=== PATIENT | female | born 1940 | race African-American/Black ===

== ENCOUNTER 2018-11-26 10:11 | Inpatient (IN) | payer MEDICARE, OTHER ==
[~2018-11-26] VITALS: Ht 167.6 cm; Wt 100.2 kg
[~2018-11-26 10:11] MED LIST: AMLO10TA4 PO; FOLIC ACID; NITRO-BID; POTASSIUM
[2018-11-26] MEDS ORDERED: MORPHINE SULFATE 4 MG/ML CPJ (NOT FOR IM USE) IV STA (11:02)
[2018-11-26] MEDS ORDERED: SODIUM CHLORIDE 0.9% 1,000 ML IV ONE (11:02)
[2018-11-26] MEDS ORDERED: AMLODIPINE 5MG TABLET PO ONE (11:15)
[2018-11-26 11:24] LABS: CLARITY URINE CLEAR (CLEAR); COLOR URINE YELLOW (YELLOW); KETONES URINE NEGATIVE (NEGATIVE); LEUKOCYTE ESTERASE URINE 2+ (NEGATIVE); NITRITE URINE NEGATIVE (NEGATIVE); OCCULT BLOOD URINE 1+ (NEGATIVE); PH URINE 7.5 (4.5-8.0); PROTEIN URINE NEGATIVE (NEGATIVE); SPECIFIC GRAVITY URINE 1.011 (1.005-1.030)
[2018-11-26 11:29] LABS: BASOPHILS % 0.8 % (0.0-2.0); EOSINOPHILS % 0.5 % (0.0-5.0); HEMOGLOBIN. 11.9 g/dL (12.0-16.0); MEAN CORPUSCULAR HEMOGLOBIN 32.5 pg (28.0-32.0); MEAN CORPUSCULAR VOLUME 98.2 fL (81.0-99.0); MEAN PLATELET VOLUME 6.6 fl (7.4-10.4); MONOCYTES % 11.3 % (2.0-8.0); NEUTROPHILS % 60.4 % (40.0-76.0); PLATELET 268 x1000/uL (130-400); RED BLOOD CELL COUNT 3.67 mill/uL (4.2-5.4)
[2018-11-26 11:31] LABS: CHLORIDE 103 mEq/L (98-107)
[2018-11-26 11:32] LABS: INR 1.1; PROTHROMBIN TIME 11.1 sec (9.1-11.1)
[2018-11-26] MEDS ORDERED: HYDROCODONE/ACETAMINOPHEN 5/325MG TABLET PO ONE (13:45)
[2018-11-26] MEDS ORDERED: CEFTRIAXONE 1 G PREMIX 50 ML IV ONE (16:30)
[2018-11-26] MEDS ORDERED: ONDANSETRON HCL 4MG/2ML INJ IV PRN (17:00)
[2018-11-26] MEDS ORDERED: SODIUM CHLORIDE 0.9% 1,000 ML IV SCH (17:45)
[2018-11-26] MEDS: THIAMINE HCL 100MG TABLET PO SCH (18:22)
[2018-11-26] MEDS: AMLODIPINE 10MG TABLET PO SCH (18:22)
[2018-11-26] MEDS: HYDROCODONE/ACETAMINOPHEN 5/325MG TABLET PO PRN (18:30)
[2018-11-26 18:37] VITALS: BP 192/72
[2018-11-26 20:00] VITALS: BP_SYST 125; BP_SYST 192; BP_DIAS 72; BP_DIAS 77
[2018-11-26] MEDS ORDERED: AMLODIPINE 10MG TABLET PO SCH (20:15)
[2018-11-26] MEDS: ENOXAPARIN 30MG/0.3ML SYR SUBCUT SCH (21:36)
[2018-11-26 22:49] VITALS: BP 125/77
[2018-11-26] MEDS: MORPHINE SULFATE 4 MG/ML CPJ (NOT FOR IM USE) IV PRN (23:49)
[2018-11-27] VITALS: BP 141/65
[2018-11-27 04:00] VITALS: BP 162/67
[2018-11-27] MEDS: HYDROCODONE/ACETAMINOPHEN 5/325MG TABLET PO PRN ×4 (06:34→22:29)
[2018-11-27 08:00] VITALS: BP 158/67
[2018-11-27 08:05] LABS: BASOPHILS % 1.2 % (0.0-2.0); EOSINOPHILS % 1.2 % (0.0-5.0); HEMATOCRIT. 37.6 % (36.0-48.0); HEMOGLOBIN. 12.7 g/dL (12.0-16.0); MEAN CORPUSCULAR HEMOGLOBIN 33.1 pg (28.0-32.0); MEAN CORPUSCULAR VOLUME 98.1 fL (81.0-99.0); MONOCYTES % 14.3 % (2.0-8.0); NEUTROPHILS % 54.3 % (40.0-76.0); PLATELET 286 x1000/uL (130-400); RED BLOOD CELL COUNT 3.84 mill/uL (4.2-5.4); RED CELL DISTRIBUTION WIDTH 12.8 % (11.6-14.6)
[2018-11-27 08:07] LABS: CHLORIDE 104 mEq/L (98-107)
[2018-11-27] MEDS: FOLIC ACID 1MG TABLET PO SCH (09:00)
[2018-11-27] MEDS: THIAMINE HCL 100MG TABLET PO SCH (09:00)
[2018-11-27] MEDS: AMLODIPINE 10MG TABLET PO SCH (09:00)
[2018-11-27] MEDS: ENOXAPARIN 30MG/0.3ML SYR SUBCUT SCH ×2 (09:01→20:44)
[2018-11-27 12:00] VITALS: BP 152/72
[2018-11-27 16:00] VITALS: BP 158/80
[2018-11-27] MEDS: CEFTRIAXONE 1 G PREMIX 50 ML IV SCH (18:05)
[2018-11-27] MEDS: MORPHINE SULFATE 4 MG/ML CPJ (NOT FOR IM USE) IV PRN (19:58)
[2018-11-27 20:00] VITALS: BP 150/78
[2018-11-28] VITALS (7 sets, daily range): BP systolic 131–147; BP diastolic 68–78
[2018-11-28] MEDS: HYDROCODONE/ACETAMINOPHEN 5/325MG TABLET PO PRN ×4 (03:40→20:09)
[2018-11-28] MEDS: THIAMINE HCL 100MG TABLET PO SCH (09:44)
[2018-11-28] MEDS: FOLIC ACID 1MG TABLET PO SCH (09:44)
[2018-11-28] MEDS: AMLODIPINE 10MG TABLET PO SCH (09:45)
[2018-11-28] MEDS: ENOXAPARIN 30MG/0.3ML SYR SUBCUT SCH ×2 (09:46→20:09)
[2018-11-28] MEDS: CEFTRIAXONE 1 G PREMIX 50 ML IV SCH (17:00)
[2018-11-28] MEDS ORDERED: CEFTRIAXONE 1 G PREMIX 50 ML IV SCH (18:30)
[2018-11-29 00:11] VITALS: BP 130/65
[2018-11-29] MEDS: HYDROCODONE/ACETAMINOPHEN 5/325MG TABLET PO PRN (02:11)
[2018-11-29] MEDS: MORPHINE SULFATE 4 MG/ML CPJ (NOT FOR IM USE) IV PRN ×2 (03:39→08:49)
[2018-11-29 04:00] VITALS: BP 133/73
[2018-11-29 06:16] LABS: BASOPHILS % 1.3 % (0.0-2.0); EOSINOPHILS % 1.4 % (0.0-5.0); HEMATOCRIT. 38.2 % (36.0-48.0); HEMOGLOBIN. 13.1 g/dL (12.0-16.0); LYMPHOCYTES % 36.2 % (20.0-50.0); MEAN CORPUSCULAR HEMOGLOBIN 33.3 pg (28.0-32.0); MONOCYTES % 14.7 % (2.0-8.0); NEUTROPHILS % 46.4 % (40.0-76.0); PLATELET 286 x1000/uL (130-400); RED BLOOD CELL COUNT 3.93 mill/uL (4.2-5.4); RED CELL DISTRIBUTION WIDTH 12.7 % (11.6-14.6)
[2018-11-29 07:31] LABS: CHLORIDE 103 mEq/L (98-107)
[2018-11-29 07:36] LABS: PHOSPHORUS 3.6 mg/dL (2.5-4.9)
[2018-11-29 08:01] VITALS: BP 124/56
[2018-11-29] MEDS: FOLIC ACID 1MG TABLET PO SCH (08:48)
[2018-11-29] MEDS: AMLODIPINE 10MG TABLET PO SCH (08:48)
[2018-11-29] MEDS: THIAMINE HCL 100MG TABLET PO SCH (08:48)
[2018-11-29] MEDS ORDERED: MELOXICAM 7.5MG TABLET PO SCH (09:00)
[2018-11-29 12:12] VITALS: BP 144/76
[2018-11-29] MEDS: ENOXAPARIN 30MG/0.3ML SYR SUBCUT SCH (12:21)
[2018-11-29 16:19] VITALS: BP 166/97
[2018-11-29 16:39] VITALS: BP 166/97
[2018-11-29] MEDS ORDERED: NYSTATIN POWDER 15GM TOP SCH (17:00)
== END 2018-11-29 17:20 | disposition home or self-care (01) | DRG 690 ==
LOC: ER 10:11 → ENRESERV 15:21 → 6WST 16:45 → EDBEDREQTM 16:48 → EDBEDREQSVC 16:48 → EDBEDREQ 16:48 → 6WST 23:00
PROVIDERS: ADMIT Internal Medicine Nephrology; ATTEND Internal Medicine Nephrology
DX: N39.0 Urinary tract infection, site not specified (principal); I10 Essential (primary) hypertension; E66.9 Obesity, unspecified; M19.90 Unspecified osteoarthritis, unspecified site; R26.9 Unspecified abnormalities of gait and mobility; M54.5 Low back pain; I25.10 Atherosclerotic heart disease of native coronary artery without angina pectoris; K44.9 Diaphragmatic hernia without obstruction or gangrene; Z90.49 Acquired absence of other specified parts of digestive tract; I25.2 Old myocardial infarction; Z90.710 Acquired absence of both cervix and uterus; Z68.35 Body mass index [BMI] 35.0-35.9, adult
CPT/HCPCS: 36415; 72110; 74176; 80048; 83735; 84100; 84134; 96374; 96375; 97116; 97162; 99285; J0696; J1650; J2270; J7030; J7050

== ENCOUNTER 2019-04-08 16:22 | Inpatient (IN) | payer MEDICARE, OTHER ==
[~2019-04-08] VITALS: Ht 167.6 cm; Wt 95.7 kg
[2019-04-08] MEDS ORDERED: FUROSEMIDE 40MG/4ML VIAL IV ONE (17:15)
[2019-04-08 17:39] LABS: BASOPHILS % 1.1 % (0.0-2.0); EOSINOPHILS % 1.2 % (0.0-5.0); HEMATOCRIT. 33.5 % (36.0-48.0); HEMOGLOBIN. 11.6 g/dL (12.0-16.0); LYMPHOCYTES % 23.2 % (20.0-50.0); MEAN CORPUSCULAR HEMOGLOBIN 33.6 pg (28.0-32.0); MEAN CORPUSCULAR VOLUME 97.3 fL (81.0-99.0); MEAN PLATELET VOLUME 6.6 fl (7.4-10.4); MONOCYTES % 12.4 % (2.0-8.0); NEUTROPHILS % 62.1 % (40.0-76.0); PLATELET 204 x1000/uL (130-400); RED BLOOD CELL COUNT 3.44 mill/uL (4.2-5.4); RED CELL DISTRIBUTION WIDTH 12.9 % (11.6-14.6)
[2019-04-08 17:44] LABS: CHLORIDE 105 mEq/L (98-107)
[2019-04-08 18:08] LABS: CLARITY URINE CLEAR (CLEAR); COLOR URINE YELLOW (YELLOW); KETONES URINE NEGATIVE (NEGATIVE); LEUKOCYTE ESTERASE URINE 2+ (NEGATIVE); NITRITE URINE NEGATIVE (NEGATIVE); OCCULT BLOOD URINE 1+ (NEGATIVE); PROTEIN URINE NEGATIVE (NEGATIVE); SPECIFIC GRAVITY URINE 1.007 (1.005-1.030)
[2019-04-08] MEDS ORDERED: ASPIRIN 81MG TABLET PO ONE (18:30)
[2019-04-08] MEDS ORDERED: CEFTRIAXONE 1 G PREMIX 50 ML IV ONE (18:30)
[2019-04-08 20:00] VITALS: BP 162/109
[2019-04-08 21:41] VITALS: BP 162/109
[2019-04-09] VITALS: BP 160/78
[2019-04-09 04:00] VITALS: BP 188/96
[2019-04-09] MEDS ORDERED: ACETAMINOPHEN 325MG TABLET PO PRN (04:15)
[2019-04-09] MEDS ORDERED: GUAIFENESIN 200MG/10ML SUGAR FREE UDC PO PRN (04:15)
[2019-04-09] MEDS ORDERED: CLONIDINE 0.1MG TABLET PO PRN (04:15)
[2019-04-09] MEDS ORDERED: DIPHENHYDRAMINE 50MG/ML VIAL IV PRN (04:15)
[2019-04-09] MEDS ORDERED: MAGNESIUM/ALUMINUM HYDROXIDE/SIMETHICONE 30ML UDC PO PRN (04:15)
[2019-04-09] MEDS: TRAMADOL 50MG TABLET PO PRN ×3 (05:12→20:15)
[2019-04-09] MEDS: SODIUM CHLORIDE 0.9% INJ 3ML FLUSH IVF SCH ×3 (05:13→23:08)
[2019-04-09 08:00] VITALS: BP 131/63
[2019-04-09] MEDS ORDERED: PNEUMOCOCCAL 23-VAL P-SAC VAC 0.5 ML IM ONE (08:00)
[2019-04-09] MEDS: ENOXAPARIN 30MG/0.3ML SYR SUBCUT SCH ×2 (08:25→20:29)
[2019-04-09] MEDS: POTASSIUM CHLORIDE 20MEQ TABLET SR PO SCH (08:25)
[2019-04-09] MEDS: FUROSEMIDE 40MG/4ML VIAL IVP SCH (08:25)
[2019-04-09] MEDS: AMLODIPINE 10MG TABLET PO SCH (08:25)
[2019-04-09 12:00] VITALS: BP 126/57
[2019-04-09] MEDS ORDERED: HYDRALAZINE 20MG/ML VIAL IV PRN (14:15)
[2019-04-09] MEDS: LOSARTAN POTASSIUM 100 MG TABLET PO SCH (14:36)
[2019-04-09] MEDS: ASPIRIN 81MG EC TABLET PO SCH (14:36)
[2019-04-09 16:00] VITALS: BP 166/93
[2019-04-09] MEDS: SPIRONOLACTONE 25MG TABLET PO SCH (17:17)
[2019-04-09 20:00] VITALS: BP 131/54
[2019-04-09 21:00] LABS: HEPATITIS B SURFACE ANTIGEN NEGATIVE
[2019-04-09 21:30] LABS: HEPATITIS A AB IGM NEGATIVE (NEGATIVE)
[2019-04-10] VITALS: BP 128/59
[2019-04-10 04:00] VITALS: BP 141/46
[2019-04-10] MEDS: SODIUM CHLORIDE 0.9% INJ 3ML FLUSH IVF SCH ×3 (05:37→22:00)
[2019-04-10 07:11] LABS: CHLORIDE 102 mEq/L (98-107)
[2019-04-10 07:27] LABS: HDL CHOLESTEROL 67 mg/dL (40-59); LDL CHOLESTEROL 98 mg/dL (5-100); T4 FREE 0.93 ng/dL (0.76-1.46)
[2019-04-10 07:28] LABS: PHOSPHORUS 3.4 mg/dL (2.5-4.9)
[2019-04-10 07:29] LABS: EOSINOPHILS % 3.2 % (0.0-5.0); HEMATOCRIT. 34.9 % (36.0-48.0); HEMOGLOBIN. 12.2 g/dL (12.0-16.0); LYMPHOCYTES % 36.7 % (20.0-50.0); MEAN CORPUSCULAR HEMOGLOBIN 33.6 pg (28.0-32.0); MEAN CORPUSCULAR VOLUME 96.5 fL (81.0-99.0); MEAN PLATELET VOLUME 7.1 fl (7.4-10.4); MONOCYTES % 14.4 % (2.0-8.0); NEUTROPHILS % 44.7 % (40.0-76.0); PLATELET 243 x1000/uL (130-400); RED BLOOD CELL COUNT 3.61 mill/uL (4.2-5.4); RED CELL DISTRIBUTION WIDTH 12.8 % (11.6-14.6)
[2019-04-10 08:00] VITALS: BP 134/68
[2019-04-10] MEDS: ASPIRIN 81MG EC TABLET PO SCH (08:55)
[2019-04-10] MEDS: SPIRONOLACTONE 25MG TABLET PO SCH (08:55)
[2019-04-10] MEDS: ENOXAPARIN 30MG/0.3ML SYR SUBCUT SCH ×2 (08:55→21:15)
[2019-04-10] MEDS: POTASSIUM CHLORIDE 20MEQ TABLET SR PO SCH (08:55)
[2019-04-10] MEDS: AMLODIPINE 10MG TABLET PO SCH (08:55)
[2019-04-10] MEDS: LOSARTAN POTASSIUM 100 MG TABLET PO SCH (08:55)
[2019-04-10] MEDS: TRAMADOL 50MG TABLET PO PRN ×2 (09:02→18:19)
[2019-04-10] MEDS: FUROSEMIDE 40MG/4ML VIAL IVP SCH (11:21)
[2019-04-10 12:00] VITALS: BP 142/57
[2019-04-10] MEDS ORDERED: REGADENOSON 0.4 MG/5 ML IV NR (15:00)
[2019-04-10 16:00] VITALS: BP 145/67
[2019-04-10 20:00] VITALS: BP 137/57
[2019-04-11] VITALS: BP 148/95
[2019-04-11] MEDS: TRAMADOL 50MG TABLET PO PRN ×2 (00:18→07:00)
[2019-04-11 04:00] VITALS: BP_SYST 125; BP_SYST 148; BP_DIAS 62; BP_DIAS 95
[2019-04-11] MEDS: ONDANSETRON HCL 4MG/2ML INJ IV PRN ×2 (06:10→11:14)
[2019-04-11] MEDS: SODIUM CHLORIDE 0.9% INJ 3ML FLUSH IVF SCH (06:10)
[2019-04-11 07:17] LABS: BASOPHILS % 0.5 % (0.0-2.0); EOSINOPHILS % 2.2 % (0.0-5.0); HEMATOCRIT. 36.1 % (36.0-48.0); HEMOGLOBIN. 12.3 g/dL (12.0-16.0); LYMPHOCYTES % 35.5 % (20.0-50.0); MEAN CORPUSCULAR HEMOGLOBIN 33.2 pg (28.0-32.0); MEAN CORPUSCULAR VOLUME 97.4 fL (81.0-99.0); MEAN PLATELET VOLUME 6.6 fl (7.4-10.4); MONOCYTES % 14.4 % (2.0-8.0); NEUTROPHILS % 47.4 % (40.0-76.0); PLATELET 266 x1000/uL (130-400); RED CELL DISTRIBUTION WIDTH 12.8 % (11.6-14.6)
[2019-04-11 07:20] LABS: CHLORIDE 101 mEq/L (98-107)
[2019-04-11 07:32] LABS: CREATINE KINASE 120 IU/L (26-192)
[2019-04-11 07:34] LABS: CREATINE KINASE MB FRACTION < 1.0 ng/mL (0.5-3.6)
[2019-04-11 08:00] VITALS: BP 121/68
[2019-04-11] MEDS ORDERED: ASPIRIN 81MG EC TABLET PO SCH (09:00)
[2019-04-11] MEDS ORDERED: REGADENOSON 0.4 MG/5 ML IV ONE (09:10)
[2019-04-11] MEDS: AMLODIPINE 10MG TABLET PO SCH (11:02)
[2019-04-11] MEDS: POTASSIUM CHLORIDE 20MEQ TABLET SR PO SCH (11:02)
[2019-04-11] MEDS: SPIRONOLACTONE 25MG TABLET PO SCH (11:02)
[2019-04-11] MEDS: LOSARTAN POTASSIUM 100 MG TABLET PO SCH (11:03)
[2019-04-11] MEDS: ENOXAPARIN 30MG/0.3ML SYR SUBCUT SCH (11:03)
[2019-04-11] MEDS: FUROSEMIDE 40MG/4ML VIAL IVP SCH (11:03)
[2019-04-11 12:00] VITALS: BP 142/66
== END 2019-04-11 15:50 | disposition home health service (06) | DRG 292 ==
LOC: ER 17:03 → 5WST 19:15 → ENRESERV 19:44
PROVIDERS: ADMIT Internal Medicine; ATTEND Internal Medicine
DX: I11.0 Hypertensive heart disease with heart failure (principal); R65.10 Systemic inflammatory response syndrome (SIRS) of non-infectious origin without acute organ dysfunction; I50.33 Acute on chronic diastolic (congestive) heart failure; I42.9 Cardiomyopathy, unspecified; M19.90 Unspecified osteoarthritis, unspecified site; E66.9 Obesity, unspecified; E78.5 Hyperlipidemia, unspecified; K21.9 Gastro-esophageal reflux disease without esophagitis; I49.3 Ventricular premature depolarization; Z60.2 Problems related to living alone; I25.118 Atherosclerotic heart disease of native coronary artery with other forms of angina pectoris; Z90.710 Acquired absence of both cervix and uterus; Z98.61 Coronary angioplasty status; Z82.49 Family history of ischemic heart disease and other diseases of the circulatory system; Z90.49 Acquired absence of other specified parts of digestive tract; Z79.899 Other long term (current) drug therapy; I25.2 Old myocardial infarction; Z68.34 Body mass index [BMI] 34.0-34.9, adult
CPT/HCPCS: 36415; 71045; 76700; 78452; 80061; 81003; 82550; 82553; 83735; 83880; 84100; 84439; 84443; 84484; 85379; 86705; 86709; 86803; 87340; 90732; 93005; 93017; 93306; 93970; 96365; 99285; A9500; J0696; J1650; J1940; J2405; J2785

== ENCOUNTER 2021-07-28 02:32 | Emergency (ER) | payer MEDICARE, OTHER ==
[~2021-07-28] VITALS: Ht 154.9 cm; Wt 91.0 kg
[~2021-07-28 02:32] MED LIST changes: +ASPI-1497 MT; -FOLIC ACID; +FURO40TA5 PO; +LOSA25TA26 MT; -NITRO-BID; -POTASSIUM
[2021-07-28 03:27] LABS: HEMATOCRIT 38.2 % (36.0-48.0); MEAN CORPUSCULAR HEMOGLOBIN 33.5 pg (28.0-32.0); MEAN CORPUSCULAR VOLUME 98.6 fL (81.0-99.0); PLATELET 335 x1000/uL (130-400); RED BLOOD CELL COUNT 3.87 mill/uL (4.2-5.4); RED CELL DISTRIBUTION WIDTH 12.4 % (11.6-14.6)
[2021-07-28 03:30] LABS: CHLORIDE 100 mEq/L (98-107)
[2021-07-28] MEDS ORDERED: ACET-2708 MT (05:38)
[2021-07-28] MEDS ORDERED: ACETAMINOPHEN 500MG TABLET PO ONE (05:45)
[2021-07-28 07:00] VITALS: BP 131/68
[2021-07-28 07:26] LABS: CLARITY URINE CLOUDY (CLEAR); COLOR URINE YELLOW (YELLOW); KETONES URINE NEGATIVE (NEGATIVE); LEUKOCYTE ESTERASE URINE 2+ (NEGATIVE); NITRITE URINE NEGATIVE (NEGATIVE); OCCULT BLOOD URINE TRACE (NEGATIVE); PH URINE 5.5 (4.5-8.0); PROTEIN URINE NEGATIVE (NEGATIVE); SPECIFIC GRAVITY URINE 1.012 (1.005-1.030); UROBILINOGEN URINE 0.2 E.U./dL (0.2-1.0)
== END 2021-07-28 07:42 | disposition home or self-care (01) ==
LOC: ER 02:59
DX: M54.9 Dorsalgia, unspecified (principal); M54.2 Cervicalgia; I10 Essential (primary) hypertension; Z98.890 Other specified postprocedural states; Z79.899 Other long term (current) drug therapy
CPT/HCPCS: 36415; 72128; 72131; 80053; 81003; 85027; 87077; 87186; 99284

== ENCOUNTER 2021-08-16 16:21 | Emergency (ER) | payer MEDICARE, OTHER ==
[~2021-08-16] VITALS: Ht 160 cm; Wt 100.0 kg
[~2021-08-16 16:21] MED LIST changes: +ACET-2708 MT
[2021-08-16] MEDS ORDERED: ACETAMINOPHEN 325MG TABLET PO ONE (16:45)
[2021-08-16 18:31] VITALS: BP 148/86
== END 2021-08-16 18:32 | disposition home or self-care (01) ==
LOC: ER 16:21
DX: S00.03XA Contusion of scalp, initial encounter (principal); I10 Essential (primary) hypertension; Z90.49 Acquired absence of other specified parts of digestive tract; Z98.51 Tubal ligation status; Z98.890 Other specified postprocedural states; Z79.82 Long term (current) use of aspirin; W18.30XA Fall on same level, unspecified, initial encounter; Y93.89 Activity, other specified; Y92.89 Other specified places as the place of occurrence of the external cause; Y99.8 Other external cause status
CPT/HCPCS: 99283

== ENCOUNTER 2022-06-05 12:50 | Inpatient (IN) | payer MEDICARE, OTHER ==
[~2022-06-05] VITALS: Ht 165.1 cm; Wt 99.8 kg
[~2022-06-05 12:50] MED LIST changes: +AZIT500T8 MT; +PANT40TA51 MT
[2022-06-05] MEDS ORDERED: ONDANSETRON HCL 4MG/2ML INJ IV ONE (13:30)
[2022-06-05] MEDS ORDERED: FAMOTIDINE 20MG/2ML VIAL IV ONE (13:30)
[2022-06-05] MEDS ORDERED: SODIUM CHLORIDE 0.9% 1,000 ML IV ONE (13:30)
[2022-06-05 13:59] LABS: HEMATOCRIT. 34.4 % (36.0-48.0); HEMOGLOBIN. 11.6 g/dL (12.0-16.0); MEAN CORPUSCULAR HEMOGLOBIN 32.7 pg (28.0-32.0); MEAN CORPUSCULAR VOLUME 97.4 fL (81.0-99.0); MEAN PLATELET VOLUME 6.5 fl (7.4-10.4); PLATELET 236 x1000/uL (130-400); RED BLOOD CELL COUNT 3.54 mill/uL (4.2-5.4); RED CELL DISTRIBUTION WIDTH 13.4 % (11.6-14.6)
[2022-06-05 14:05] LABS: CHLORIDE 98 mEq/L (98-107)
[2022-06-05 14:21] LABS: PLATELET ESTIMATE NORMAL
[2022-06-05] MEDS ORDERED: IOHEXOL-300 100 ML BOTTLE ONE (15:44)
[2022-06-05] MEDS ORDERED: ONDANSETRON HCL 4MG/2ML INJ IV PRN (19:15)
[2022-06-05] MEDS ORDERED: DIPHENHYDRAMINE 50MG/ML VIAL IV PRN (19:15)
[2022-06-05] MEDS ORDERED: CLONIDINE 0.1MG TABLET PO PRN (19:15)
[2022-06-05] MEDS: SODIUM CHLORIDE 0.9% 1,000 ML IV SCH (21:13)
[2022-06-05 23:30] VITALS: BP 150/79
[2022-06-06] MEDS: ACETAMINOPHEN 325MG TABLET PO PRN ×3 (03:59→23:01)
[2022-06-06 04:08] VITALS: BP 156/73
[2022-06-06 07:46] LABS: BASOPHILS % 0.7 % (0.0-2.0); EOSINOPHILS % 1.2 % (0.0-5.0); HEMATOCRIT. 32.9 % (36.0-48.0); HEMOGLOBIN. 11.3 g/dL (12.0-16.0); LYMPHOCYTES % 18.9 % (20.0-50.0); MEAN CORPUSCULAR HEMOGLOBIN 33.5 pg (28.0-32.0); MEAN CORPUSCULAR VOLUME 97.4 fL (81.0-99.0); MEAN PLATELET VOLUME 6.9 fl (7.4-10.4); MONOCYTES % 12.9 % (2.0-8.0); NEUTROPHILS % 66.3 % (40.0-76.0); PLATELET 233 x1000/uL (130-400); RED BLOOD CELL COUNT 3.38 mill/uL (4.2-5.4); RED CELL DISTRIBUTION WIDTH 13.4 % (11.6-14.6)
[2022-06-06 08:00] VITALS: BP 128/74
[2022-06-06] MEDS: SODIUM CHLORIDE 0.9% 1,000 ML IV SCH ×2 (08:00→20:30)
[2022-06-06 08:12] LABS: CHLORIDE 104 mEq/L (98-107)
[2022-06-06 12:00] VITALS: BP 113/69
[2022-06-06] MEDS: AMLODIPINE 10MG TABLET PO SCH (12:45)
[2022-06-06 16:00] VITALS: BP 136/69
[2022-06-06] MEDS: LOSARTAN POTASSIUM 25 MG TABLET PO SCH (16:32)
[2022-06-06] MEDS: FUROSEMIDE 40MG TABLET PO SCH (16:32)
[2022-06-06 20:00] VITALS: BP 160/63
[2022-06-07] VITALS: BP 140/75
[2022-06-07 04:00] VITALS: BP 166/77
[2022-06-07 08:00] VITALS: BP 148/76
[2022-06-07] MEDS: LOSARTAN POTASSIUM 25 MG TABLET PO SCH ×2 (08:55→18:23)
[2022-06-07] MEDS: PANTOPRAZOLE 40MG DR TABLET PO SCH (08:56)
[2022-06-07] MEDS: FUROSEMIDE 40MG TABLET PO SCH ×2 (08:58→17:00)
[2022-06-07] MEDS: AMLODIPINE 10MG TABLET PO SCH (08:58)
[2022-06-07] MEDS ORDERED: DEXTROSE 50% WATER 50ML SYRINGE IV PRN (09:30)
[2022-06-07] MEDS ORDERED: NALOXONE HCL 0.4MG/ML VIAL IV PRN (09:45)
[2022-06-07] MEDS: HYDROCODONE/ACETAMINOPHEN 5/325MG TABLET PO PRN ×2 (10:17→19:45)
[2022-06-07 12:00] VITALS: BP 129/76
[2022-06-07] MEDS: BLOOD SUGAR DIAGNOSTIC STRIP TEST SCH ×3 (12:20→21:27)
[2022-06-07] MEDS: INSULIN LISPRO 100 UNITS/ML SUBCUT SCH ×3 (12:50→21:00)
[2022-06-07 16:00] VITALS: BP 92/71
[2022-06-07 20:00] VITALS: BP 111/51
[2022-06-07] MEDS: SODIUM CHLORIDE 0.9% 1,000 ML IV SCH (21:26)
[2022-06-08] VITALS: BP 131/78
[2022-06-08 04:00] VITALS: BP 144/81
[2022-06-08] MEDS: BLOOD SUGAR DIAGNOSTIC STRIP TEST SCH ×4 (06:10→21:01)
[2022-06-08] MEDS: ACETAMINOPHEN 325MG TABLET PO PRN (06:36)
[2022-06-08] MEDS: HYDROCODONE/ACETAMINOPHEN 5/325MG TABLET PO PRN ×2 (06:41→19:45)
[2022-06-08] MEDS: INSULIN LISPRO 100 UNITS/ML SUBCUT SCH ×4 (07:50→21:00)
[2022-06-08 08:00] VITALS: BP 130/69
[2022-06-08 08:22] LABS: HEMATOCRIT. 35.7 % (36.0-48.0); HEMOGLOBIN. 12.4 g/dL (12.0-16.0); MEAN CORPUSCULAR HEMOGLOBIN 33.2 pg (28.0-32.0); MEAN CORPUSCULAR VOLUME 95.8 fL (81.0-99.0); PLATELET 283 x1000/uL (130-400); RED BLOOD CELL COUNT 3.73 mill/uL (4.2-5.4); RED CELL DISTRIBUTION WIDTH 13.7 % (11.6-14.6)
[2022-06-08 08:40] LABS: CHLORIDE 96 mEq/L (98-107)
[2022-06-08] MEDS: SODIUM CHLORIDE 0.9% 1,000 ML IV SCH ×6 (09:08→09:50)
[2022-06-08] MEDS: PANTOPRAZOLE 40MG DR TABLET PO SCH (09:45)
[2022-06-08] MEDS: LOSARTAN POTASSIUM 25 MG TABLET PO SCH ×2 (09:45→18:16)
[2022-06-08] MEDS: FUROSEMIDE 40MG TABLET PO SCH ×2 (09:46→18:17)
[2022-06-08] MEDS: AMLODIPINE 10MG TABLET PO SCH (09:46)
[2022-06-08] MEDS ORDERED: BISA-81 PO (11:22)
[2022-06-08] MEDS ORDERED: POLY17PO3 MT (11:22)
[2022-06-08 11:54] VITALS: BP 118/47
[2022-06-08] MEDS ORDERED: POTASSIUM CHLORIDE 20MEQ TABLET SR PO NR ×2 (12:00→18:15)
[2022-06-08 14:58] LABS: PLATELET ESTIMATE NORMAL
[2022-06-08 16:00] VITALS: BP 143/71
[2022-06-08 20:00] VITALS: BP 119/56
[2022-06-09] VITALS: BP 124/58
[2022-06-09] MEDS: BLOOD SUGAR DIAGNOSTIC STRIP TEST SCH ×2 (06:07→13:03)
[2022-06-09] MEDS: INSULIN LISPRO 100 UNITS/ML SUBCUT SCH ×2 (07:50→12:50)
[2022-06-09 08:00] VITALS: BP 140/76
[2022-06-09] MEDS: LOSARTAN POTASSIUM 25 MG TABLET PO SCH (08:56)
[2022-06-09] MEDS: PANTOPRAZOLE 40MG DR TABLET PO SCH (08:56)
[2022-06-09] MEDS: AMLODIPINE 10MG TABLET PO SCH (08:57)
[2022-06-09] MEDS: FUROSEMIDE 40MG TABLET PO SCH (08:58)
[2022-06-09] MEDS: HYDROCODONE/ACETAMINOPHEN 5/325MG TABLET PO PRN (08:58)
[2022-06-09 12:03] VITALS: BP 109/65
[2022-06-09 14:06] VITALS: BP 109/65
[2022-06-10] MEDS ORDERED: FAMOTIDINE 20MG TABLET PO SCH (09:00)
== END 2022-06-09 14:45 | disposition home health service (06) | DRG 389 ==
LOC: ER 12:50 → MICUSO 18:16 → EDBEDREQ 18:21 → EDBEDREQTM 18:21 → ENRESERV 22:00 → 6EST 23:58
PROVIDERS: ADMIT Internal Medicine; ATTEND Internal Medicine
DX: K56.600 Partial intestinal obstruction, unspecified as to cause (principal); I50.42 Chronic combined systolic (congestive) and diastolic (congestive) heart failure; J98.11 Atelectasis; K57.90 Diverticulosis of intestine, part unspecified, without perforation or abscess without bleeding; I11.0 Hypertensive heart disease with heart failure; I25.10 Atherosclerotic heart disease of native coronary artery without angina pectoris; E78.5 Hyperlipidemia, unspecified; Z90.49 Acquired absence of other specified parts of digestive tract; Z90.710 Acquired absence of both cervix and uterus; G89.29 Other chronic pain; I73.9 Peripheral vascular disease, unspecified
CPT/HCPCS: 36415; 71045; 74018; 74177; 80048; 80053; 82962; 83036; 83735; 83880; 84484; 85025; 93005; 93970; 99285; J1200; J2405; J3490; J7030; Q9967

== ENCOUNTER 2022-09-09 16:46 | Emergency (ER) | payer MEDICARE, OTHER ==
[~2022-09-09] VITALS: Ht 157.5 cm; Wt 82.0 kg
[~2022-09-09 16:46] MED LIST changes: -AZIT500T8 MT; +BISA-81 PO; +POLY17PO3 MT
[2022-09-09 17:39] LABS: BASOPHILS % 0.8 % (0.0-2.0); EOSINOPHILS % 0.1 % (0.0-5.0); HEMATOCRIT. 34.6 % (36.0-48.0); HEMOGLOBIN. 11.6 g/dL (12.0-16.0); LYMPHOCYTES % 15.3 % (20.0-50.0); MEAN CORPUSCULAR HEMOGLOBIN 32.5 pg (28.0-32.0); MEAN CORPUSCULAR VOLUME 96.5 fL (81.0-99.0); MEAN PLATELET VOLUME 6.6 fl (7.4-10.4); MONOCYTES % 5.7 % (2.0-8.0); NEUTROPHILS % 78.1 % (40.0-76.0); PLATELET 218 x1000/uL (130-400); RED BLOOD CELL COUNT 3.58 mill/uL (4.2-5.4); RED CELL DISTRIBUTION WIDTH 12.4 % (11.6-14.6)
[2022-09-09 17:44] LABS: CHLORIDE 90 mEq/L (98-107)
[2022-09-09 17:47] LABS: PROTHROMBIN TIME 11.2 sec (9.6-11.0)
[2022-09-09] MEDS: LACTULOSE 20G/30ML UDC PO ONE (19:14)
[2022-09-09] MEDS: LACTULOSE 20G/30ML UDC PO NR (19:20)
[2022-09-09] MEDS: MORPHINE SULFATE 10 MG/ML CPJ IM ONE (20:45)
[2022-09-09] MEDS ORDERED: BISA-81 PO (21:58)
[2022-09-09] MEDS ORDERED: POLY17PO3 MT (21:58)
[2022-09-09 22:39] VITALS: BP 172/79
[2022-09-09] MEDS: LORAZEPAM 1MG TABLET PO ONE (22:39)
[2022-09-09] MEDS: KETOROLAC 30MG/ML VIAL IM ONE (22:39)
== END 2022-09-09 22:59 | disposition home or self-care (01) ==
LOC: ER 16:56
DX: K56.41 Fecal impaction (principal); E87.1 Hypo-osmolality and hyponatremia; Z68.31 Body mass index [BMI] 31.0-31.9, adult
CPT/HCPCS: 36415; 74176; 80053; 83690; 85025; 85610; 96372; 99285; J1885; J2270

== ENCOUNTER 2023-10-19 21:59 | Inpatient (IN) | payer MEDICARE, OTHER ==
[~2023-10-19] VITALS: Ht 172.7 cm; Wt 84.4 kg
[2023-10-19 22:04] VITALS: O2SAT 100
[2023-10-19] MEDS ORDERED: MORPHINE SULFATE 4 MG/ML CPJ (NOT FOR IM USE) IV ONE (23:00)
[2023-10-20] VITALS (12 sets, daily range): BP systolic 120–176; BP diastolic 65–97; PULSE 82–106; RESP 10–23; TEMP 96.7–97.8
[2023-10-20 02:13] LABS: BASOPHILS % 0.8 % (0.0-2.0); EOSINOPHILS % 0.3 % (0.0-5.0); HEMOGLOBIN. 12.2 g/dL (12.0-16.0); LYMPHOCYTES % 15.9 % (20.0-50.0); MEAN CORPUSCULAR HEMOGLOBIN 33.1 pg (28.0-32.0); MEAN CORPUSCULAR HGB CONC 33.8 g/dL (31.0-37.0); MEAN CORPUSCULAR VOLUME 97.9 fL (81.0-99.0); MEAN PLATELET VOLUME 7.4 fl (7.4-10.4); MONOCYTES % 8.1 % (2.0-8.0); NEUTROPHILS % 74.9 % (40.0-76.0); PLATELET 226 x1000/uL (130-400); RED BLOOD CELL COUNT 3.68 mill/uL (4.2-5.4); WHITE BLOOD COUNT 3.7 x1000/uL (4.5-11.0)
[2023-10-20] MEDS: ONDANSETRON HCL 4MG/2ML INJ IV ONE (02:16)
[2023-10-20] MEDS: MORPHINE SULFATE 4 MG/ML CPJ (NOT FOR IM USE) IV NR (02:16)
[2023-10-20] MEDS: ONDANSETRON HCL 4MG/2ML INJ IV NR (02:17)
[2023-10-20 02:25] LABS: ALANINE AMINOTRANSFERASE 12 IU/L (10-49); ALBUMIN 4.8 g/dL (3.2-4.8); ASPARTATE AMINOTRANSFERASE 32 IU/L (<34); BILIRUBIN TOTAL 0.9 mg/dL (0.1-1.0); CALCIUM 9.7 mg/dL (8.7-10.4); CARBON DIOXIDE 24 mEq/L (21-32); CHLORIDE 105 mEq/L (98-107); CREATININE 0.8 mg/dL (0.6-1.0); GLUCOSE 111 mg/dL (70-105); POTASSIUM 4.5 mEq/L (3.5-5.1); PROTEIN TOTAL 8.7 g/dL (6.0-8.3); SODIUM 135 mEq/L (136-145); TROPONIN I HIGH SENSITIVITY 24 ng/L (3.0-34); UREA NITROGEN BLOOD 21 mg/dL (9-23)
[2023-10-20 02:39] LABS: PROTHROMBIN TIME 11.2 sec (9.6-11.0)
[2023-10-20 02:58] LABS: DIFFERENTIAL COMMENT 1
[2023-10-20] MEDS ORDERED: DILTIAZEM HCL 5MG/ML 5ML VIAL IV NR (06:00)
[2023-10-20] MEDS ORDERED: MAGNESIUM/ALUMINUM HYDROXIDE/SIMETHICONE 30ML UDC PO PRN (06:00)
[2023-10-20] MEDS ORDERED: IPRATROPIUM/ALBUTEROL 0.5-3(2.5)MG/3ML NEB HHN PRN (06:00)
[2023-10-20] MEDS ORDERED: ONDANSETRON HCL 4MG/2ML INJ IV PRN (06:00)
[2023-10-20] MEDS ORDERED: SODIUM CHLORIDE 0.9% 1,000 ML IV SCH (06:00)
[2023-10-20] MEDS ORDERED: ACETAMINOPHEN 325MG TABLET PO PRN (06:00)
[2023-10-20] MEDS ORDERED: ACETAMINOPHEN 500MG TABLET PO PRN (06:15)
[2023-10-20] MEDS ORDERED: NITROGLYCERIN 0.4MG TABLET SL SL PRN (06:15)
[2023-10-20 07:45] LABS: CALCIUM 9.6 mg/dL (8.7-10.4); CARBON DIOXIDE 26 mEq/L (21-32); CHLORIDE 103 mEq/L (98-107); CREATINE KINASE MB FRACTION 3.3 ng/mL (0.5-3.6); CREATININE 0.7 mg/dL (0.6-1.0); GLUCOSE 109 mg/dL (70-105); POTASSIUM 4.2 mEq/L (3.5-5.1); SODIUM 136 mEq/L (136-145); UREA NITROGEN BLOOD 17 mg/dL (9-23)
[2023-10-20] MEDS: NITROGLYCERIN SPRAY/4.9GM CAN TL ONE (08:06)
[2023-10-20] MEDS: DEXT 5%/0.9% NACL 500 ML IV ONE (08:06)
[2023-10-20] MEDS: PANTOPRAZOLE SODIUM 40 MG/VIAL IV SCH (08:06)
[2023-10-20] MEDS ORDERED: AMLODIPINE 10MG TABLET PO SCH (09:00)
[2023-10-20] MEDS ORDERED: IOHEXOL-300 100 ML BOTTLE ONE (09:11)
[2023-10-20] MEDS: ASPIRIN 81MG EC TABLET PO SCH (09:24)
[2023-10-20] MEDS: AMLODIPINE 5MG TABLET PO SCH (09:24)
[2023-10-20] MEDS: FUROSEMIDE 40MG TABLET PO SCH (09:24)
[2023-10-20] MEDS: BISACODYL 5MG TABLET PO SCH (09:38)
[2023-10-20] MEDS: LOSARTAN 25 MG TABLET PO SCH (09:38)
[2023-10-20] MEDS: MORPHINE SULFATE 4 MG/ML CPJ (NOT FOR IM USE) IV SCH (12:22)
[2023-10-20] MEDS: LABETALOL 5MG/ML SYR 20 MG/4 ML SYRINGE IV NR (13:06)
[2023-10-20] MEDS: POLYETHYLENE GLYCOL 3350 (17GM) 1 DOSE PACK PO SCH (14:00)
[2023-10-20] MEDS: DEXT 5%/0.9% NACL 1,000 ML IV SCH (14:21)
[2023-10-20] MEDS: SODIUM PHOS,M-BASIC-D-BASIC 15 MM in DEXT 5% WATER 245 ML IV NR (14:21)
[2023-10-20] MEDS: HYDRALAZINE 20MG/ML VIAL IV PRN (16:13)
[2023-10-20] MEDS ORDERED: LOSA100T33 MT (16:28)
[2023-10-20] MEDS ORDERED: ONDA4TAB11 PO (16:29)
[2023-10-20] MEDS ORDERED: CARI350T28 MT (16:30)
[2023-10-20] MEDS ORDERED: FOLI-43 MT (16:34)
[2023-10-20] MEDS ORDERED: SPIR25TA6 MT (16:34)
[2023-10-20] MEDS ORDERED: POTA-205 MT (16:34)
[2023-10-20] MEDS ORDERED: DOCU-138 MT (16:34)
[2023-10-20] MEDS ORDERED: MAGN200T5 MT (16:34)
[2023-10-20 16:43] LABS: CREATINE KINASE MB FRACTION 4.1 ng/mL (0.5-3.6)
[2023-10-20] MEDS: MORPHINE SULFATE 2 MG/ML CPJ (NOT FOR IM USE) IV PRN (17:25)
[2023-10-20] MEDS: HYDRALAZINE 20MG/ML VIAL IV SCH (17:26)
[2023-10-20] MEDS ORDERED: NALOXONE HCL 0.4MG/ML VIAL IV PRN (17:30)
[2023-10-21] VITALS (14 sets, daily range): BP systolic 118–172; BP diastolic 57–98; PULSE 73–124; RESP 17–22; TEMP 97.5–98
[2023-10-21 07:11] LABS: BASOPHILS % 0.8 % (0.0-2.0); EOSINOPHILS % 0.4 % (0.0-5.0); HEMATOCRIT. 35.7 % (36.0-48.0); HEMOGLOBIN. 11.9 g/dL (12.0-16.0); MEAN CORPUSCULAR HEMOGLOBIN 32.5 pg (28.0-32.0); MEAN CORPUSCULAR HGB CONC 33.4 g/dL (31.0-37.0); MEAN CORPUSCULAR VOLUME 97.5 fL (81.0-99.0); NEUTROPHILS % 74.8 % (40.0-76.0); PLATELET 224 x1000/uL (130-400); RED BLOOD CELL COUNT 3.67 mill/uL (4.2-5.4); WHITE BLOOD COUNT 4.9 x1000/uL (4.5-11.0)
[2023-10-21 07:30] LABS: CALCIUM 8.8 mg/dL (8.7-10.4); CARBON DIOXIDE 26 mEq/L (21-32); CHLORIDE 104 mEq/L (98-107); CHOLESTEROL 162 mg/dL (<200); CREATININE 0.5 mg/dL (0.6-1.0); GLUCOSE 116 mg/dL (70-105); HDL CHOLESTEROL 57 mg/dL (>65); LDL CHOLESTEROL 93 mg/dL (5-100); POTASSIUM 3.5 mEq/L (3.5-5.1); SODIUM 134 mEq/L (136-145); T4 FREE 1.37 ng/dL (0.89-1.76); THYROID STIMULATING HORMONE 0.49 uIU/mL (0.55-4.78); TRIGLYCERIDE 43 mg/dL (0-150); UREA NITROGEN BLOOD 13 mg/dL (9-23)
[2023-10-21] MEDS: AMLODIPINE 10MG TABLET PO SCH (09:00)
[2023-10-21] MEDS ORDERED: LABETALOL 5MG/ML SYR 20 MG/4 ML SYRINGE IV SCH (09:00)
[2023-10-21] MEDS ORDERED: FUROSEMIDE 40MG/4ML VIAL IVP SCH ×2 (09:00)
[2023-10-21 09:52] LABS: INR 1.1; PROTHROMBIN TIME 11.9 sec (9.6-11.0)
[2023-10-21] MEDS: FUROSEMIDE 40MG/4ML VIAL IVP SCH (10:01)
[2023-10-21] MEDS: HYDRALAZINE 20MG/ML VIAL IV PRN (11:13)
[2023-10-21] MEDS ORDERED: LABETALOL HCL 5MG/ML VIAL 20ML IV ONE (15:51)
[2023-10-21] MEDS ORDERED: PROPOFOL 200MG/20ML VIAL IV ONE ×2 (16:37→16:51)
[2023-10-21] MEDS ORDERED: ONDANSETRON HCL 4MG/2ML INJ ONE (16:45)
[2023-10-21] MEDS ORDERED: DEXAMETHASONE 4MG/ML 1ML VIAL ONE (16:45)
[2023-10-21] MEDS: LABETALOL 5MG/ML SYR 20 MG/4 ML SYRINGE IV SCH (17:00)
[2023-10-22] VITALS (10 sets, daily range): BP systolic 113–141; BP diastolic 60–93; PULSE 64–97; RESP 15–22; TEMP 97.3–98.3
[2023-10-22 06:41] LABS: HEMATOCRIT 32.9 % (36.0-48.0); HEMOGLOBIN 11.1 g/dL (12.0-16.0); MEAN CORPUSCULAR HEMOGLOBIN 33.1 pg (28.0-32.0); MEAN CORPUSCULAR HGB CONC 33.7 g/dL (31.0-37.0); MEAN CORPUSCULAR VOLUME 98.2 fL (81.0-99.0); PLATELET 199 x1000/uL (130-400); RED BLOOD CELL COUNT 3.35 mill/uL (4.2-5.4); RED CELL DISTRIBUTION WIDTH 13.1 % (11.6-14.6); WHITE BLOOD COUNT 13.1 x1000/uL (4.5-11.0)
[2023-10-22 06:58] LABS: CALCIUM 8.7 mg/dL (8.7-10.4); CARBON DIOXIDE 25 mEq/L (21-32); CHLORIDE 105 mEq/L (98-107); CREATININE 0.6 mg/dL (0.6-1.0); GLUCOSE 103 mg/dL (70-105); POTASSIUM 3.4 mEq/L (3.5-5.1); SODIUM 138 mEq/L (136-145); UREA NITROGEN BLOOD 19 mg/dL (9-23)
[2023-10-22] MEDS: KCL 20MEQ/100ML PREMIX 100 ML IV NR (09:46)
[2023-10-22] MEDS: FENTANYL CITRATE/PF 50MCG/ML 2ML VIAL IV NR (13:14)
[2023-10-22] MEDS: DEXT 5%/0.9% NACL 1,000 ML IV SCH (18:00)
[2023-10-23] VITALS (11 sets, daily range): BP systolic 129–170; BP diastolic 56–102; PULSE 65–85; RESP 12–21; TEMP 97.2–98
[2023-10-23] MEDS: KETOROLAC 15MG/ML VIAL IV NR (12:29)
[2023-10-24] VITALS (9 sets, daily range): BP systolic 147–179; BP diastolic 52–99; PULSE 55–77; RESP 16–24; TEMP 97.6–98.3
[2023-10-24 07:17] LABS: HEMOGLOBIN 11.4 g/dL (12.0-16.0); MEAN CORPUSCULAR HEMOGLOBIN 32.7 pg (28.0-32.0); MEAN CORPUSCULAR HGB CONC 33.4 g/dL (31.0-37.0); PLATELET 176 x1000/uL (130-400); RED BLOOD CELL COUNT 3.47 mill/uL (4.2-5.4); RED CELL DISTRIBUTION WIDTH 12.9 % (11.6-14.6); WHITE BLOOD COUNT 6.1 x1000/uL (4.5-11.0)
[2023-10-24 07:31] LABS: CALCIUM 8.9 mg/dL (8.7-10.4); CARBON DIOXIDE 26 mEq/L (21-32); CHLORIDE 106 mEq/L (98-107); CREATININE 0.6 mg/dL (0.6-1.0); GLUCOSE 92 mg/dL (70-105); SODIUM 140 mEq/L (136-145); UREA NITROGEN BLOOD 15 mg/dL (9-23)
[2023-10-24] MEDS ORDERED: HYDRALAZINE 20MG/ML VIAL IV PRN (08:30)
[2023-10-24] MEDS: NITROGLYCERIN 0.4MG TABLET SL SL PRN (15:19)
== END 2023-10-24 17:30 | disposition left against medical advice (07) | DRG 392 ==
LOC: ER 21:59 → 5EST 10-20 06:32 → EDBEDREQSVC 10-20 08:03
PROVIDERS: ADMIT Preventive Medicine Clinical Informatics; ATTEND Preventive Medicine Clinical Informatics
PROC: 0DB78ZX Excision of Stomach, Pylorus, Via Natural or Artificial Opening Endoscopic, Diagnostic (ICD-10-PCS; principal; 2023-10-21)
DX: K22.0 Achalasia of cardia (principal); I50.22 Chronic systolic (congestive) heart failure; K29.70 Gastritis, unspecified, without bleeding; T18.128A Food in esophagus causing other injury, initial encounter; I11.0 Hypertensive heart disease with heart failure; G89.29 Other chronic pain; Z53.29 Procedure and treatment not carried out because of patient's decision for other reasons; E83.39 Other disorders of phosphorus metabolism; I25.10 Atherosclerotic heart disease of native coronary artery without angina pectoris; K44.9 Diaphragmatic hernia without obstruction or gangrene; K59.09 Other constipation; I73.9 Peripheral vascular disease, unspecified; K21.9 Gastro-esophageal reflux disease without esophagitis; R13.10 Dysphagia, unspecified; E87.6 Hypokalemia; K22.89 Other specified disease of esophagus; E04.2 Nontoxic multinodular goiter; E78.5 Hyperlipidemia, unspecified; Z79.899 Other long term (current) drug therapy; Z79.82 Long term (current) use of aspirin; W44.F3XA Food entering into or through a natural orifice, initial encounter; Y93.89 Activity, other specified; Y92.89 Other specified places as the place of occurrence of the external cause; Y99.8 Other external cause status
CPT/HCPCS: 36415; 70491; 71045; 71260; 80048; 80053; 80061; 82040; 82550; 82553; 82962; 83036; 83735; 83880; 84100; 84439; 84443; 84484; 85025; 85027; 88305; 88312; 88313; 92610; 93005; 93970; 99285; C9113; J0360; J1100; J1885; J1940; J2270; J2405; J2704; J3010; J3480; J3490; J7042; J7060; Q9967

== ENCOUNTER 2024-11-01 12:07 | Emergency (ER) | payer MEDICARE, OTHER ==
[~2024-11-01] VITALS: Ht 167.6 cm; Wt 70.0 kg
[~2024-11-01 12:07] MED LIST changes: -AMLO10TA4 PO; +AMLO10TA80; +APIX2.5T MT; -ASPI-1497 MT; +ATOR10TA69 MT; +BACL-141; +CARI350T28 MT; +DILT240C96; +DILT60TA3 MT; +DOCU-138 MT; +FAMO20TA8; +FOLI-43 MT; +FURO20TA4; +LOSA100T33 MT; -LOSA25TA26 MT; +MAGN200T5 MT; +MECL-299; +METO25TA6 PO; +ONDA-239 PO; +POTA-204; +POTA-205 MT; +SPIR25TA6 MT
[2024-11-01 12:24] VITALS: O2SAT 98
[2024-11-01 12:53] LABS: BASOPHILS % 0.9 % (0.0-2.0); EOSINOPHILS % 0.4 % (0.0-5.0); HEMATOCRIT. 37.2 % (36.0-48.0); HEMOGLOBIN. 12.4 g/dL (12.0-16.0); LYMPHOCYTES % 19.8 % (20.0-50.0); MEAN CORPUSCULAR HEMOGLOBIN 33.3 pg (28.0-32.0); MEAN CORPUSCULAR HGB CONC 33.4 g/dL (31.0-37.0); MEAN CORPUSCULAR VOLUME 99.8 fL (81.0-99.0); MEAN PLATELET VOLUME 6.9 fl (7.4-10.4); MONOCYTES % 10.6 % (2.0-8.0); NEUTROPHILS % 68.3 % (40.0-76.0); PLATELET 231 x1000/uL (130-400); RED BLOOD CELL COUNT 3.73 mill/uL (4.2-5.4); RED CELL DISTRIBUTION WIDTH 15.4 % (11.6-14.6); WHITE BLOOD COUNT 4.2 x1000/uL (4.5-11.0)
[2024-11-01 12:58] LABS: CHLORIDE 102 mEq/L (98-107); SODIUM 137 mEq/L (136-145)
[2024-11-01 12:59] LABS: CARBON DIOXIDE 24 mEq/L (21-32)
[2024-11-01 13:00] LABS: CALCIUM 9.8 mg/dL (8.7-10.4)
[2024-11-01 13:04] LABS: CREATININE 0.8 mg/dL (0.6-1.0); GLUCOSE 127 mg/dL (70-105); UREA NITROGEN BLOOD 13 mg/dL (9-23)
[2024-11-01 13:15] LABS: TROPONIN I HIGH SENSITIVITY 6 ng/L (3.0-34)
[2024-11-01 13:16] LABS: ALANINE AMINOTRANSFERASE 12 IU/L (10-49); ALBUMIN 4.3 g/dL (3.2-4.8); ASPARTATE AMINOTRANSFERASE 33 IU/L (<34); BILIRUBIN DIRECT 0.5 mg/dL (<=3.0); BILIRUBIN TOTAL 1.7 mg/dL (0.1-1.0); PROTEIN TOTAL 8.1 g/dL (6.0-8.3)
[2024-11-01 13:35] VITALS: BP 123/69; PULSE 81; RESP 16; TEMP 36.8; O2SAT 98
[2024-11-01 14:30] LABS: CLARITY URINE CLEAR (CLEAR); COLOR URINE YELLOW (YELLOW); GLUCOSE URINE NEGATIVE (NEGATIVE); KETONES URINE NEGATIVE (NEGATIVE); LEUKOCYTE ESTERASE URINE NEGATIVE (NEGATIVE); NITRITE URINE NEGATIVE (NEGATIVE); OCCULT BLOOD URINE 1+ (NEGATIVE); PROTEIN URINE NEGATIVE (NEGATIVE); SPECIFIC GRAVITY URINE 1.009 (1.005-1.030)
[2024-11-01] MEDS: SODIUM CHLORIDE 0.9% 1,000 ML IV ONE (14:39)
[2024-11-01] MEDS ORDERED: ONDANSETRON HCL 4MG/2ML INJ IV PRN (14:45)
[2024-11-01] MEDS ORDERED: ACETAMINOPHEN 325MG TABLET PO PRN (14:45)
[2024-11-01 15:00] LABS: MUCUS URINE 1+ /lpf (< = 2+); SQUAMOUS EPITHELIAL CELL URINE 1+ /lpf (RARE/1+)
[2024-11-01] MEDS ORDERED: DILTIAZEM HCL 90MG TABLET PO SCH (15:00)
[2024-11-01 15:02] LABS: WBC URINE 0-2 /hpf (0-2)
[2024-11-01 15:03] LABS: BACTERIA URINE NONE SEEN
[2024-11-01] MEDS ORDERED: METO25TA6 MT (15:09)
[2024-11-01] MEDS ORDERED: APIXABAN 2.5 MG TABLET PO SCH (21:00)
[2024-11-01] MEDS ORDERED: FAMOTIDINE 20MG TABLET PO SCH (21:00)
[2024-11-02] MEDS ORDERED: PANTOPRAZOLE 40MG DR TABLET PO SCH (07:50)
[2024-11-02] MEDS ORDERED: METOPROLOL TARTRATE 25MG TABLET PO SCH (09:00)
[2024-11-02] MEDS ORDERED: AMLODIPINE 10MG TABLET PO SCH (09:00)
[2024-11-02] MEDS ORDERED: LOSARTAN 100 MG TABLET PO SCH (09:00)
[2024-11-02] MEDS ORDERED: FAMOTIDINE(NEO) 1MG/ML SUSP PO SCH (09:00)
[2024-11-02] MEDS ORDERED: FOLIC ACID 1MG TABLET PO SCH (09:00)
[2024-11-02] MEDS ORDERED: FUROSEMIDE 20MG TABLET PO SCH (09:00)
[2024-11-02] MEDS ORDERED: ATORVASTATIN CALCIUM 10MG TABLET PO SCH (21:00)
== END 2024-11-01 15:30 | disposition left against medical advice (07) ==
LOC: ER 12:07
DX: R41.0 Disorientation, unspecified (principal); E78.5 Hyperlipidemia, unspecified; I11.0 Hypertensive heart disease with heart failure; I50.32 Chronic diastolic (congestive) heart failure; I67.82 Cerebral ischemia; Z79.01 Long term (current) use of anticoagulants; Z79.899 Other long term (current) drug therapy
CPT/HCPCS: 99284; 70450; 71045; 80076; 80048; 81003; 84443; 85025; 84484; 36415; J7030